=== PATIENT | female | born 1955 | race Caucasian/White ===

== ENCOUNTER 2016-11-11 06:11 | Inpatient (IN) | payer OTHER ==
[~2016-11-11] VITALS: Ht 162.6 cm; Wt 81.2 kg
[~2016-11-11 06:11] MED LIST: CARV3.122 PO; CEPH500T PO; DETLA4 PO; ENAL5TAB76 PO; GABA300C PO; GLIP5TAB4 PO; INSU100S22 SUBQ; LISI-424 PO; METF1000 PO; OMEP20TC10 PO; RANI300T35 PO; SIMV10TA6 PO; TRAM50TA3 PO
[2016-11-11] MEDS ORDERED: SEVOFLURANE 250 ML BTL INH ONE (07:25)
[2016-11-11] MEDS ORDERED: PROPOFOL 200 MG/20 ML VIAL IV ONE (07:25)
[2016-11-11] MEDS ORDERED: KETOROLAC 60 MG/2 ML VIAL IM ONE (07:25)
[2016-11-11] MEDS ORDERED: ONDANSETRON 4 MG/2 ML VIAL ONE (07:25)
[2016-11-11] MEDS ORDERED: DEXAMETHASONE 4 MG/ML VIAL ONE (07:25)
[2016-11-11] MEDS ORDERED: CLINDAMYCIN 900 MG/6 ML VIAL IV ONE (07:33)
[2016-11-11] MEDS ORDERED: MORPHINE SULFATE 4 MG/ML SYR IM/IVP PRN (07:35)
[2016-11-11] MEDS ORDERED: fentaNYL 0.05 MG/ML VIAL ONE (07:37)
[2016-11-11] MEDS ORDERED: MEPERIDINE 50 MG/ML SYR ONE (07:37)
[2016-11-11] MEDS ORDERED: MIDAZOLAM 2 MG/2 ML VIAL ONE (07:37)
[2016-11-11] MEDS ORDERED: LISI-424 PO (07:54)
[2016-11-11] MEDS ORDERED: GABA250S1 PO (07:54)
[2016-11-11] MEDS ORDERED: SIMV10TA6 PO (07:54)
[2016-11-11] MEDS ORDERED: OMEP20TC24 PO (07:54)
[2016-11-11] MEDS ORDERED: METF10002 PO (07:54)
[2016-11-11] MEDS ORDERED: MIDAZOLAM 2 MG/2 ML VIAL IVP ONE (09:05)
[2016-11-11] MEDS ORDERED: MEPERIDINE 25 MG/ML SYR IVP PRN (09:05)
[2016-11-11] MEDS ORDERED: METOCLOPRAMIDE 10 MG/2 ML INJ VIAL IVP PRN (09:05)
[2016-11-11] MEDS ORDERED: MEPERIDINE 25 MG/ML SYR ONE (09:29)
[2016-11-11] MEDS ORDERED: NACL 0.9% 500 ML IV SCH (09:35)
[2016-11-11 14:40] VITALS: BP 119/62
--- NOTE | 2016-11-11 14:45 | NUR ---
RECEIVED PT ON UNIT VIA GURNEY, PT IS A/OX4, BEDREST, PT HAS IV ON THE LT HAND, PATENT, INTACT, FLUSHING WELL, PT IS HAS HAHN CATHETER IN PLACE, PT IS S/P VAGINAL HYSTERECTOMY 11/11/16, WINTER PAD IS DRY AND INTACT, NO S/S OF RESPIRATORY DISTRESS OR DISCOMFORT NOTED, CALL LIGHT IS WITHIN REACH, WILL CONTINUE TO MONITOR, FAMILY IS AT BEDSIDE.
[2016-11-11 16:00] VITALS: BP 101/57
[2016-11-11] MEDS: MEPERIDINE 25 MG/ML SYR IVP PRN (16:09)
--- NOTE | 2016-11-11 16:45 | NUR ---
PT IS SLEEPING IN BED AT THIS TIME, FAMILY IS AT BEDSIDE, CALL LIGHT IS WITHIN REACH, WILL CONTINUE TO MONITOR.
--- NOTE | 2016-11-11 18:30 | NUR ---
PT IS RESTING IN BED, DROWSY BUT AWAKEN WHEN CALLED BY NAME, NO S/S OF RESPIRATORY DISTRESS OR DISCOMFORT NOTED, IS AT BEDSIDE, CALL LIGHT IS WITHIN REACH, WILL CONTINUE TO MONITOR.
--- NOTE | 2016-11-11 19:25 | NUR ---
ENDORSED PT TO KENAN VINES. FOR CONTINUITY OF CARE, PT STABLE AT THIS TIME, FAMILY IS AT BEDSIDE, CALL LIGHT WITHIN REACH.
--- NOTE | 2016-11-11 19:26 | NUR ---
RECEIVED REPORT FROM DAY RN FOR CONTINUITY OF CARE. PATIENT IS A&OX4, BERMUDIAN SPEAKING, DISCUSSED PLAN OF CARE WITH PATIENT AND FAMILY MEMBER AT BEDSIDE, VERBALIZED UNDERSTANDING. SHIFT ASSESSMENT DONE, VS TAKEN, STABLE AT THIS TIME. NO S/S OF RESPIRATORY DISTRESS NOTED ON ROOM AIR. PATIENT DENIES PAIN AT THIS TIME. S/P HYSTERECTOMY, WINTER PAD IN PLACE. IV TO LT HAND PATENT AND INFUSING FLUIDS WELL. SAFETY MEASURES ENFORCED. CALL LIGHT WITHIN REACH. WILL CONTINUE TO MONITOR.
[2016-11-11] MEDS: ONDANSETRON 4 MG/2 ML VIAL IVP PRN (19:53)
[2016-11-11 20:00] VITALS: BP 115/66
--- NOTE | 2016-11-11 20:30 | NUR ---
SPOKE TO DR. STACK, INFORMED MD PATIENT ONLY HAS PACU ORDER FOR DEMEROL FOR PAIN, PER MD OK TO CONTINUE WITH DEMEROL AND IVF ON EMAR. WILL CONTINUE WITH PLAN OF CARE.
--- NOTE | 2016-11-11 22:10 | NUR ---
PATIENT RESTING AT THIS TIME, DENIES PAIN. WILL CONTINUE TO MONITOR.
[2016-11-12] VITALS: BP 117/68
[2016-11-12] MEDS: MEPERIDINE 25 MG/ML SYR IVP PRN ×2 (00:22→08:05)
--- NOTE | 2016-11-12 00:25 | NUR ---
VITAL SIGNS STABLE, PT C/O PAIN, MEDICATED PER MD ORDER. CALL LIGHT WITHIN REACH.
--- NOTE | 2016-11-12 02:40 | NUR ---
PATIENT SLEEPING AT THIS TIME, NO S/S OF DISTRESS OR DISCOMFORT NOTED. WILL CONTINUE TO MONITOR.
--- NOTE | 2016-11-12 04:27 | NUR ---
PATIENT REPOSITIONED FOR COMFORT, RESTING AT THIS TIME, DENIES PAIN. SAFETY MEASURES ENFORCED, CALL LIGHT WITHIN REACH.
--- NOTE | 2016-11-12 06:15 | NUR ---
PATIENT RESTING IN BED, NO S/S OF DISTRESS OR DISCOMFORT AT THIS TIME.
[2016-11-12 06:50] LABS: BASOPHILS # (AUTO) 0.1 K/uL (0.00-0.22); EOSINOPHILS # (AUTO) 0.1 K/uL (0-0.4); EOSINOPHILS % (AUTO) 0.6 % (0.0-4.0); HEMOGLOBIN 9.5 g/dL (12.0-16.0); LYMPHOCYTES # (AUTO) 1.5 K/uL (2.5-16.5); LYMPHOCYTES % (AUTO) 11.6 % (20.5-51.1); MEAN CORPUSCULAR HEMOGLOBIN 30 pg (27-31); MEAN CORPUSCULAR HGB CONC 33 g/dL (33-37); MEAN CORPUSCULAR VOLUME 92 fL (80-94); MONOCYTES % (AUTO) 7.9 % (1.7-9.3); NEUTROPHILS # (AUTO) 9.9 K/uL (1.8-7.7); NEUTROPHILS % (AUTO) 78.9 % (42.2-75.2); PLATELET COUNT (AUTO) 258 K/uL (140-450); RED BLOOD CELL COUNT(AUTO) 3.14 MIL/uL (4.20-5.40); RED CELL DISTRIBUTION WIDTH 14.3 % (11.6-13.7); WHITE BLOOD COUNT (AUTO) 12.6 K/uL (4.8-10.8)
--- NOTE | 2016-11-12 06:52 | NUR ---
DR STACK CAME TO SEE PATIENT, PER HAHN CATH TO BE REMOVED NOW AND PATIENT TO AMBULATE TO CHAIR IN AM. HAHN CATH REMOVED, 100 ML YELLOW URINE, 10 ML NS RETURNED.
--- NOTE | 2016-11-12 07:27 | NUR ---
ENDORSED PATIENT TO DAY RN FOR CONTINUITY OF CARE, PATIENT IS IN STABLE CONDITION.
--- NOTE | 2016-11-12 07:40 | NUR ---
REPORT RECEIVED FROM MEASURING CLERK, PT SLEEPING QUIETLY, RESP EVEN UNLABORED ON ROOM AIR IN NAD, AROUSES EASILY BY VOICE, ABD SOFT, NON DISTENDED, NO VAGINAL BLEEDING NOTED, REPORTS ABD PAIN, WILL MEDICATE, PLAN OF CARE REVIEWED, CALL SMITH WITHIN REACH, SIDE RAILS UP, BED LOCKED IN LOW POSITION, WILL CONTINUE TO MONITOR.
[2016-11-12 08:00] VITALS: BP 111/59
[2016-11-12] MEDS: ONDANSETRON 4 MG/2 ML VIAL IVP PRN ×3 (08:05→19:41)
--- NOTE | 2016-11-12 08:50 | NUR ---
PATIENT HAS BEEN SCREENED AND CATEGORIZED MODERATE NUTRITION RISK. PATIENT WILL BE SEEN WITHIN 3-5 DAYS OF ADMISSION. 11/14/16-11/16/[address]
--- NOTE | 2016-11-12 10:00 | NUR ---
PT UP TO BATHROOM AMBULATES WELL WITH STEADY GAIT WITH MINIMAL ASSIST, PT REPORTS SLIGHT PAIN, BUT TOLERABLE, REPORTS SPONTANEOUS VOID WITHOUT PROBLEM. AT BEDSIDE, WILL CONTINUE TO MONITOR.
[2016-11-12] MEDS ORDERED: MIDAZOLAM 2 MG/2 ML VIAL IVP ONE (10:40)
[2016-11-12] MEDS: ACETAMINOPHEN/CODEINE 300/30MG 1 TAB PO PRN (11:06)
--- NOTE | 2016-11-12 12:50 | NUR ---
PT CONTINUES TO C/O SEVER PAIN, PT HOLDING ABD, APPEARS IN OBVIOUS PAIN, DR STACK CALLED, TELEPHONE ORDER FOR DILAUDID RECEIVED, ALSO, PT OK TO ADVANCE DIET TOLERATED PER DR STACK. WILL CONTINUE TO MONITOR
[2016-11-12 13:55] VITALS: BP 126/68
[2016-11-12] MEDS: HYDROmorphone 1 MG/ML AMP IVP PRN ×2 (13:57→19:42)
--- NOTE | 2016-11-12 14:20 | NUR ---
PT SLEEPING QUIETLY IN NAD, RESP EVEN UNLABORED, AT BEDSIDE, WILL CONTINUE TO MONITOR
[2016-11-12 16:00] VITALS: BP 124/72
--- NOTE | 2016-11-12 16:00 | NUR ---
EMESIS YELLOW LIQ X1 APPROX 100ML, ZOFRAN GIVEN PER PRN ORDER. PT STATES PAIN IS BETTER. WILL MONITOR FOR FURTHER VOMITING AND NAUSEA.
--- NOTE | 2016-11-12 16:30 | NUR ---
PT UP TO BEDSIDE COMMODE, VAGINAL SPOTTING MINIMAL, ABD SOFT, TENDER, PT REPORTS NAUSEA SUBSIDED, WILL CONTINUE TO MONITOR.
--- NOTE | 2016-11-12 16:55 | NUR ---
PT SLEEPING QUIETLY IN NAD, AT BEDSIDE REPORTS NO FURTHER VOMITING, IVF INFUSING WELL, SITE CLEAR, CALL BELLWITIN REACH, SIDE RAILS UP, WILL CONTINUE TO MONITOR.
--- NOTE | 2016-11-12 19:25 | NUR ---
REPORT GIVEN TO MANAGER CODING NURSE, PT IN STABLE CONDITION.
--- NOTE | 2016-11-12 19:30 | NUR ---
RECEIVED REPORT FROM DAY RN AT BEDSIDE, PATIENT IS AAOX4 ON ROOM AIR, NO SOB OR SIGN OF DISTRESS, PT C/O PAIN 11/14O WILL MEDICATE PER MD ORDER, SKIN INTACT, IV TO LEFT HAND PATENT AND INTACT, DISCUSSED PLAN OF CARE WITH PATIENT, PT VERBALIZED UNDERSTANDING, CALL LIGHT WITHIN REACH. WILL CONTINUE TO MONITOR
--- NOTE | 2016-11-12 19:51 | NUR ---
ASSISTED PT UP TO BEDSIDE COMMODE, VOIDED CLEAR YELLOW URINE, ASSISTED BACK TO BED, PT C/O SEVERE PAIN /10, AND NAUSEA, ADMINISTERED PAIN MEDICATION AND ZOFRAN PER MD ORDER, CALL LIGHT WITHIN REACH. WILL CONTINUE TO MONITOR
[2016-11-13] VITALS: BP 145/72
[2016-11-13] MEDS: ACETAMINOPHEN/CODEINE 300/30MG 1 TAB PO PRN ×4 (00:01→14:46)
--- NOTE | 2016-11-13 00:25 | NUR ---
PT MOANING C/O PAIN, ASKED FOR TYLENOL STATED SHE GETS NAUSEOUS WITH THE DILAUDED, OFFERED ZOFRAN PT STATED SHE ONLY WANTED TYLENOL. PT TOLERATED WELL, ASSISTED UP TO BEDSIDE COMMODE, PT VOIDED, ASSISTED BACK TO BED, CALL LIGHT WITHIN REACH. WILL CONTINUE TO MONITOR.
--- NOTE | 2016-11-13 02:39 | NUR ---
PT SLEEPING, NO SIGN OF DISTRESS, CALL LIGHT WITHIN REACH. WILL CONTINUE TO MONITOR.
--- NOTE | 2016-11-13 04:00 | NUR ---
PT SLEEPING, NO SIGN OF DISTRESS, WILL CONTINUE TO MONITOR.
--- NOTE | 2016-11-13 07:20 | NUR ---
REPORT RECEIVED FROM RESERVATIONS AGENT NURSE, PT SLEEPING QUIETLY, RESP EVEN UNLABORED ON RA IN NAD, PT AROUSES EASILY BY VOICE, PLAN OF CARE REVIEWED, DENIES ANY IMMEDIATE NEEDS, CALL SMITH WITHIN REACH, SIDE RAILS UP, BED LOCKED IN LOW POSITION, WILL CONTINUE TO MONITOR.
--- NOTE | 2016-11-13 07:27 | NUR ---
ENDORSED PATIENT TO DAY RN AT BEDSIDE, PATIENT IN STABLE CONDITION.
[2016-11-13 08:00] VITALS: BP 132/73
--- NOTE | 2016-11-13 08:13 | NUR ---
PT ASSISTED UP TO BEDSIDE COMMODE, PT REPORTS ABD PAIN WITH MOVEMENTS, PT RETURNED TO BED WITH MINIMAL ASSIST, DENIES NEED FOR PAIN MED AT THIS TIME, DENIES NAUSEA, SITTING UP NOW TO EAT BREAKFAST.
--- NOTE | 2016-11-13 11:20 | NUR ---
PT STATES ABD PAIN SUBSIDED, NOW C/O ONLY BEING "GASSY", DENIES N/V, PT ASSISTED UP TO BEDSIDE COMMODE, NO VAGINAL BLEEDING NOTED, FAMILY AT BEDSIDE, AWAITING MD ROMAN, CALL SMITH WITHIN REACH, WILL CONTINUE TO MONITOR.
--- NOTE | 2016-11-13 14:00 | NUR ---
PT RESTING QUIETLY IN NAD,R CATHERINE EVEN UNLABORED, SKIN WARM DRY COLOR WNL, APPEARS COMFORTABLE AT THIS TIME, AT BEDSIDE, AWAITING DR STACK FOR DISPO.
[2016-11-13 16:00] VITALS: BP 128/80
--- NOTE | 2016-11-13 16:20 | NUR ---
DC INSTRUCTION GIVEN AND EXPLAINED TO PT, PT GIVEN DR STACK'S NUMBER FOR F/U APPOINTMENT, PT AND VERBALIZED FULL UNDERSTANDING, PT UP OUT OF BED WITHOUT PROBLEM, IV DC'D, CATH TIP INTACT, BLEEDING CONTROLLED, DC HOME NOW WITH , ESCORTED OUT IN WHEEL CHAIR.
== END 2016-11-13 16:20 | disposition home or self-care (01) | DRG 513 ==
LOC: MDS 06:11 → MMU 06:11 → MDS 13:33 → MTU 13:33
PROVIDERS: ADMIT Obstetrics & Gynecology; ATTEND Obstetrics & Gynecology
PROC: 0JQC0ZZ Repair Pelvic Region Subcutaneous Tissue and Fascia, Open Approach (ICD-10-PCS; 2016-11-11)
PROC: 0TVD0ZZ Restriction of Urethra, Open Approach (ICD-10-PCS; 2016-11-11)
PROC: 0UT97ZZ Resection of Uterus, Via Natural or Artificial Opening (ICD-10-PCS; principal; 2016-11-11 08:00)
PROC: 0JQC0ZZ Repair Pelvic Region Subcutaneous Tissue and Fascia, Open Approach (ICD-10-PCS; 2016-11-11 08:00)
CPT/HCPCS: 36415; 82948; 85025; 87081; J1100; J1170; J1885; J2175; J2250; J2405; J2704; J3010; J3490; J7030

== ENCOUNTER 2022-07-31 13:46 | Emergency (ER) | payer OTHER ==
[~2022-07-31] VITALS: Ht 132.1 cm; Wt 73.5 kg
[~2022-07-31 13:46] MED LIST changes: +ENAL-270 PO; -ENAL5TAB76 PO; +GABA250S1 PO; +GLIP5TAB14 PO; -GLIP5TAB4 PO; -LISI-424 PO; +LISI5TAB24 PO; +METF-1253 PO; +METF-1274 PO; -METF1000 PO; +OMEP-278 PO; +OMEP-303 PO; -OMEP20TC10 PO; -SIMV10TA6 PO; +SIMV10TA92 PO
[2022-07-31 14:02] VITALS: BP 138/78
[2022-07-31 14:56] LABS: BILIRUBIN,URINE NEGATIVE (NEGATIVE); BLOOD, URINE 1+ (NEGATIVE); COLOR,URINE YELLOW (YELLOW); LEUKOCYTE ESTERASE ,URINE 3+ (NEGATIVE); NITRITE, URINE NEGATIVE (NEGATIVE); UGLUCOSE NEGATIVE (NEGATIVE)
--- NOTE | 2022-07-31 15:00 | NUR ---
67 Y/O FEMALE BIB C/O "A LITTLE VAGINAL BLEEDING" AROUND 3 DROPS OF BLOOD WITH SOME PAINFUL [id number]. PMH: DM ALLERGY: GLIPTIZIDE, PCN, CIPRO
[2022-07-31 15:01] LABS: APPEARANCE,URINE CLOUDY (CLEAR)
[2022-07-31 15:15] LABS: WBC,URINE 80-100 /HPF (0-5)
[2022-07-31] MEDS ORDERED: PHEN-1877 PO (15:50)
[2022-07-31] MEDS ORDERED: SULF-59 PO (15:50)
--- NOTE | 2022-07-31 16:00 | NUR ---
Patient discharged with v/s stable. Written and verbal after care instructions ABOUT UTI given and explained. Patient alert, oriented and verbalized understanding of instructions. Ambulatory with steady gait. All questions addressed prior to discharge. ID band removed. Patient advised to follow up with PMD. Rx of PYRIDIUM, BACTRIM DS given. Patient educated on indication of medication including possible reaction and side effects. Opportunity to ask questions provided and answered.
--- NOTE | 2022-08-03 14:11 | NUR ---
LATE ENTRY. RECEIVED POSITIVE URINE CULTURE. FORM GIVEN TO DR ST, TREATMENT APPROPRIATE. FORM PLACED IN BINDER.
== END 2022-07-31 16:00 | disposition home or self-care (01) ==
LOC: MED 13:46
DX: N39.0 Urinary tract infection, site not specified (principal); E11.9 Type 2 diabetes mellitus without complications; I10 Essential (primary) hypertension; Z88.5 Allergy status to narcotic agent; Z79.1 Long term (current) use of non-steroidal anti-inflammatories (NSAID); Z88.8 Allergy status to other drugs, medicaments and biological substances; Z79.899 Other long term (current) drug therapy; Z79.4 Long term (current) use of insulin; Z98.890 Other specified postprocedural states
CPT/HCPCS: 81001; 87086; 99283

== ENCOUNTER 2022-08-04 08:27 | Inpatient (IN) | payer OTHER ==
[~2022-08-04] VITALS: Ht 160 cm; Wt 74.8 kg
[~2022-08-04 08:27] MED LIST changes: +PHEN-1877 PO; +SULF-59 PO
--- NOTE | 2022-08-04 08:31 | NUR ---
PT BIBA TO ER BED 6
[2022-08-04 08:34] VITALS: BP 152/72
[2022-08-04] MEDS ORDERED: ONDANSETRON 4 MG/2 ML VIAL IVP ONE (08:50)
[2022-08-04 09:56] LABS: BASOPHILS # (AUTO) 0.1 K/uL (0.00-0.22); EOSINOPHILS # (AUTO) 0.1 K/uL (0-0.4); HEMATOCRIT 39.8 % (36-48); HEMOGLOBIN 13.3 g/dL (12.0-16.0); LYMPHOCYTES # (AUTO) 1.4 K/uL (2.5-16.5); LYMPHOCYTES % (AUTO) 24.3 % (20.5-51.1); MEAN CORPUSCULAR HEMOGLOBIN 31 pg (27-31); MEAN CORPUSCULAR HGB CONC 33 g/dL (33-37); MEAN CORPUSCULAR VOLUME 92.1 fL (80-94); MONOCYTES # (AUTO) 0.3 K/uL (0.8-1.0); MONOCYTES % (AUTO) 5.1 % (1.7-9.3); NEUTROPHILS # (AUTO) 3.8 K/uL (1.8-7.7); NEUTROPHILS % (AUTO) 68.6 % (42.2-75.2); PLATELET COUNT (AUTO) 281 K/uL (140-450); RED BLOOD CELL COUNT(AUTO) 4.32 MIL/uL (4.20-5.40); RED CELL DISTRIBUTION WIDTH 15.2 % (11.6-13.7); WHITE BLOOD COUNT (AUTO) 5.6 K/uL (4.8-10.8)
[2022-08-04] MEDS ORDERED: ONDANSETRON 4 MG/2 ML VIAL ONE (10:11)
[2022-08-04 10:23] LABS: APPEARANCE,URINE CLEAR (CLEAR); BILIRUBIN,URINE NEGATIVE (NEGATIVE); BLOOD, URINE NEGATIVE (NEGATIVE); COLOR,URINE YELLOW (YELLOW); LEUKOCYTE ESTERASE ,URINE NEGATIVE (NEGATIVE); NITRITE, URINE NEGATIVE (NEGATIVE); PH,URINE 7.5 (5.0-9.0); UGLUCOSE TRACE (NEGATIVE)
[2022-08-04 10:27] LABS: ALBUMIN 3.3 g/dL (3.4-5.0); ANION GAP 13.6 (8-16); ASPARTATE AMINOTRANSFERASE 15 U/L (15-37); CARBON DIOXIDE 24.6 mmol/L (21-32); CHLORIDE 100 mmol/L (98-107); CREATININE 0.9 mg/dL (0.6-1.3); GFR ARICAN-AMERICAN 80 mL/min (>90); GLUCOSE 202 mg/dL (74-106); POTASSIUM 3.2 mmol/L (3.5-5.1); SODIUM SERUM 135 mmol/L (136-145); TOTAL BILIRUBIN 0.3 mg/dL (0.0-1.0); UREA NITROGEN, BLOOD 20 mg/dL (7-18)
[2022-08-04] MEDS: NACL 0.9% 1,000 ML IV SCH ×3 (10:28→12:17)
[2022-08-04] MEDS ORDERED: BACTRIM IV PER PHARMACY MC PRN (10:40)
[2022-08-04] MEDS ORDERED: MEROPENEM 1,000 MG in NACL 0.9% 50 ML IV ONE (10:55)
[2022-08-04] MEDS ORDERED: MEROPENEM 1,000 MG VIAL IV ONE (11:23)
[2022-08-04] MEDS ORDERED: MAGNESIUM OXIDE 400 MG TAB PO ONE (11:45)
[2022-08-04] MEDS ORDERED: POTASSIUM CHLORIDE 10 MEQ TABER PO ONE ×2 (11:45→11:51)
[2022-08-04] MEDS ORDERED: MAGNESIUM OXIDE 400 MG TAB ONE (11:50)
[2022-08-04] MEDS ORDERED: POTASSIUM CHLORIDE 20% 40 MEQ/15 ML UDC PO ONE (12:05)
[2022-08-04] MEDS ORDERED: DEXTROSE 50% 50 ML SYR IVP PRN (12:20)
[2022-08-04] MEDS ORDERED: POTASSIUM CHLORIDE 10 MEQ TABER PO PRN (12:20)
[2022-08-04] MEDS ORDERED: ACETAMINOPHEN 325 MG TAB PO PRN (12:20)
[2022-08-04] MEDS ORDERED: DOCUSATE SODIUM 100 MG GELCAP PO PRN (12:20)
[2022-08-04] MEDS ORDERED: ZOLPIDEM 10 MG TAB PO PRN (12:20)
[2022-08-04] MEDS ORDERED: LORazepam 2 MG/ML VIAL IVP PRN (12:20)
[2022-08-04] MEDS ORDERED: MAG SULF 2000 MG/WATER PREMIX 50 ML IV PRN (12:20)
[2022-08-04] MEDS ORDERED: ONDANSETRON 4 MG/2 ML VIAL IVP PRN (12:20)
[2022-08-04] MEDS: GABAPENTIN 300 MG CAP PO SCH ×2 (13:00→17:26)
[2022-08-04 13:40] VITALS: BP 132/75
--- NOTE | 2022-08-04 13:40 | NUR ---
PT WAS BROUGHT IN FROM ED IN WHEELCHAIR, ON ROOM AIR, NO ACUTE S/S OF DISTRESS. AMBULATES WITH ASSIST TO THE BED. FULL REPORT GIVEN BY KRISTINA GRAYSON. IV TO LEFT AC 20G. PATENT AND INTACT. FULL ASSESSMENT COMPLETED. CONNECTED TO [employer]. EDUCATION PROVIDED REGARDING HOSPITAL SETTING. PT ABLE TO MAKE NEEDS KNOWN. ALL SAFETY MEASURES IN PLACE, CALL LIGHT WITHIN REACH.
--- NOTE | 2022-08-04 14:04 | NUR ---
RESTING IN BED, USES BEDPAN PER REQUEST FREQUENTLY. PUREWICK IN PLACE, OK WITH PT. NO NAUSEA OR VOMITING WHILE IN THE ED. TOLERATED PO MEDS
--- NOTE | 2022-08-04 14:05 | NUR ---
Patient will be admitted to care of DR HERRERA. Admited to MED SURGMed/Surg. Will go to room 120B. Belongings list completed. Report to ASHLEE GRAYSON.
[2022-08-04 16:00] VITALS: BP 132/81
--- NOTE | 2022-08-04 16:24 | NUR ---
PT REPORT ACID REFLUX, MD MADE AWARE. TORB RECEIVED AND PLACED. WILL MEDICATE PER MD ORDER. NO ACUTE S/S OF DISTRESS, ALL SAFETY MEASURES IN PLACE, CALL LIGHT WITHIN REACH.
[2022-08-04] MEDS: BLOOD GLUCOSE MONITORING 1 DEV DEV FS SCH ×2 (17:26→20:16)
[2022-08-04] MEDS ORDERED: PANTOPRAZOLE 40 MG TABEC PO SCH (17:26)
--- NOTE | 2022-08-04 17:29 | NUR ---
PATIENT HAS BEEN SCREENED AND CATEGORIZED MODERATE NUTRITION RISK. PATIENT WILL BE SEEN WITHIN 3-5 DAYS OF ADMISSION. / REVIEWED BY TIAN WISEMAN RD
--- NOTE | 2022-08-04 18:58 | NUR ---
PT. RESTING COMFORTABLY, NO CURRENT DISTRESS, ALL NEEDS MET. NO CURRENT DISTRESS.
--- NOTE | 2022-08-04 19:05 | NUR ---
PT. RESTING COMFORTABLY, ALL NEEDS MET, NO CURRENT DISTRESS
--- NOTE | 2022-08-04 19:06 | NUR ---
RECEIVED PT FROM MORNING SHIFT NURSE. PT IS AOX4, CROATIAN SPEAKING, ABLE TO VERBALIZE NEEDS AND ABLE TO FOLLOW COMMANDS. PT IS AMBULATORY AND HAS PUREWICK. PT IS ON ROOM AIR AND ON CCHO DIET. PT HAS IV ON LEFT AC GAUGE 20, SALINE LOCK. PT SKIN IS INTACT. NO COMPLAIN OF PAIN AT THIS TIME. NO S/S OF RESPIRATORY DISTRESS NOTED. ALL SAFETY MEASURES IMPLEMENTED. BED IN LOW POSITION, BED WHEELS ON LOCK AND CALL LIGHT WITHIN REACH.
[2022-08-04 20:00] VITALS: BP 123/71
[2022-08-04] MEDS: carvediloL 3.125 MG TAB PO SCH (20:10)
--- NOTE | 2022-08-04 20:10 | NUR ---
SCHEDULED AND PRESCRIBED MEDICATION WAS GIVEN TO PT PER MD ORDER. ALL SAFETY MEASURES IMPLEMENTED. BED IN LOW POSITION, BED WHEELS ON LOCK AND CALL LIGHT WITHIN REACH.
--- NOTE | 2022-08-04 20:16 | NUR ---
PT BLOOD GLUCOSE IS 221. HUMALOG INSULIN 4 UNITS WAS GIVEN TO PT.
[2022-08-04] MEDS: INSULIN LISPRO SLIDING SCALE 100 UNITS/ML VIAL SUBQ PRN (20:17)
--- NOTE | 2022-08-05 | NUR ---
PT IS ON SLEEP. CHEST RISE AND FALL SYMMETRICALLY NOTED. RESPIRATION IS EVEN AND UNLABORED. NO S/S OF RESPIRATORY DISTRESS NOTED. ALL SAFETY MEASURES IMPLEMENTED. BED IN LOW POSITION, BED WHEELS ON LOCK AND CALL LIGHT WITHIN REACH.
--- NOTE | 2022-08-05 02:00 | NUR ---
CHECKED THE PT, STILL ON SLEEP. CHEST RISE AND FALL SYMMETRICALLY NOTED. RESPIRATION IS EVEN AND UNLABORED. NO S/S OF RESPIRATORY DISTRESS NOTED. ALL SAFETY MEASURES IMPLEMENTED. BED IN LOW POSITION, BED WHEELS ON LOCK AND CALL LIGHT WITHIN REACH.
--- NOTE | 2022-08-05 04:00 | NUR ---
EMPTY PT'S PUREWICK CANISTER AMOUNTED 500ML. PT DENIES PAIN AT THIS TIME. NO S/S OF RESPIRATORY DISTRESS NOTED. ALL SAFETY MEASURES IMPLEMENTED. BED IN LOW POSITION, BED WHEELS ON LOCK AND CALL LIGHT WITHIN REACH.
[2022-08-05] MEDS: BLOOD GLUCOSE MONITORING 1 DEV DEV FS SCH ×3 (06:30→16:54)
[2022-08-05] MEDS: INSULIN LISPRO SLIDING SCALE 100 UNITS/ML VIAL SUBQ PRN ×3 (06:31→16:55)
--- NOTE | 2022-08-05 06:31 | NUR ---
PT BLOOD SUGAR IS 151. HUMALOG INSULIN 2 UNITS WAS GIVEN TO PT.
[2022-08-05 07:04] LABS: ANION GAP 11.8 (8-16); CARBON DIOXIDE 25.7 mmol/L (21-32); CREATININE 0.8 mg/dL (0.6-1.3); POTASSIUM 3.5 mmol/L (3.5-5.1)
[2022-08-05 07:06] LABS: BASOPHILS % (AUTO) 0.7 % (0.0-2.0); EOSINOPHILS # (AUTO) 0.2 K/uL (0-0.4); EOSINOPHILS % (AUTO) 2.8 % (0.0-4.0); HEMATOCRIT 40.6 % (36-48); HEMOGLOBIN 13.6 g/dL (12.0-16.0); LYMPHOCYTES # (AUTO) 2.1 K/uL (2.5-16.5); LYMPHOCYTES % (AUTO) 34.3 % (20.5-51.1); MEAN CORPUSCULAR HEMOGLOBIN 31 pg (27-31); MEAN CORPUSCULAR HGB CONC 33 g/dL (33-37); MONOCYTES # (AUTO) 0.4 K/uL (0.8-1.0); NEUTROPHILS # (AUTO) 3.4 K/uL (1.8-7.7); NEUTROPHILS % (AUTO) 55.2 % (42.2-75.2); PLATELET COUNT (AUTO) 278 K/uL (140-450); RED BLOOD CELL COUNT(AUTO) 4.36 MIL/uL (4.20-5.40); RED CELL DISTRIBUTION WIDTH 15.4 % (11.6-13.7); WHITE BLOOD COUNT (AUTO) 6.1 K/uL (4.8-10.8)
--- NOTE | 2022-08-05 07:15 | NUR ---
RECEIVED REPORT FROM BUS REPAIR SUPERVISOR FOR CONTINUITY OF CARE. INITIAL ASSESSMENT DONE. IV ON SL. IV SITE INTACT. NOT IN ANY DISTRESS NOTED. CALL LIGHT KEPT WITHIN REACH. WILL CONTINUE TO MONITOR.
--- NOTE | 2022-08-05 07:18 | NUR ---
PT IS STABLE. ENDORSED PT TO MORNING SHIFT NURSE FOR CONTINUITY OF CARE.
[2022-08-05 08:00] VITALS: BP 145/79
[2022-08-05] MEDS: carvediloL 3.125 MG TAB PO SCH (08:48)
--- NOTE | 2022-08-05 08:48 | NUR ---
SCHEDULED PO MEDICATIONS GIVEN. TOLERATING WELL.
[2022-08-05] MEDS: GABAPENTIN 300 MG CAP PO SCH ×2 (08:53→13:00)
[2022-08-05] MEDS ORDERED: PANTOPRAZOLE 40 MG TABEC PO SCH (09:00)
[2022-08-05] MEDS ORDERED: cefTRIAXone 1,000 MG in LIDOCAINE MPF 1% 2.1 ML IM SCH (09:00)
[2022-08-05] MEDS ORDERED: ENALAPRIL 5 MG TAB PO SCH (09:00)
--- NOTE | 2022-08-05 11:37 | NUR ---
BS CHECKED 207. INSULIN WAS GIVEN PER SLIDING SCALE. TOLERATING WELL.
[2022-08-05] MEDS ORDERED: CEPH500T PO (12:03)
--- NOTE | 2022-08-05 14:20 | NUR ---
SCHEDULED MEDICATION JANUVIA GIVEN. TOLERATING WELL.
--- NOTE | 2022-08-05 14:58 | NUR ---
DC PLANNING ASSESSMENT COMPLETE PLEASE REFER TO ASSESSMENT FOR ADDITIONAL DETAILS MET WITH PT AT BEDSIDE TO COMPLETE ASSESSMENT. 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 PT REPORTS BEING INDEPENDENT IN ALL ACTIVITIES AND DENIES USE OF DME AT BASELINE. HOWEVER, PT REPORTS RECENT 'BOUTS OF DIZZINESS AND REPORTS STRUGGLING WITH EVEN GOING TO THE BATHROOM PT RESIDES IN A SINGLE STORY HOME WITH HER AND DAUGHTER, AT THE ADDRESS LISTED ON FILE. PT CURRENTLY HAS PT EVAL PENDING- POSSIBLE HH PENDING PT RECOM. PT REPORTS DC PLAN IS TO RETURN HOME WITH FAMILY PROVIDING TRANSPORTATION, ONCE MEDICALLY STABLE. Addendum: 08/05/22 at 1459 by Kash Wood SS Amended: Links added.
--- NOTE | 2022-08-05 15:21 | NUR ---
IV ABT WAS GIVEN BY NICO GRAYSON. TOLERATING WELL.
[2022-08-05 15:40] VITALS: BP 125/71
[2022-08-05 15:42] VITALS: BP 131/75
[2022-08-05 15:44] VITALS: BP 102/57
--- NOTE | 2022-08-05 15:45 | NUR ---
ORTHOSTATIC BLOOD PRESSURE TAKEN. LYING - BP 125/71 P- 66 N, SITTING - 131/75 P 69, STANDING 102/57 P 70. PT C/O DIZZINESS WHEN SITTING AND STANDING.
--- NOTE | 2022-08-05 16:54 | NUR ---
BS CHECKED 173. INSULIN WAS GIVEN PER SLIDING SCALE. TOLERATING WELL.
--- NOTE | 2022-08-05 18:40 | NUR ---
PT LEFT. DISCHARGE TO HOME. TRANSPORTED BY PRIVATE CAR PER WHEELCHAIR. ACCOMPANIED BY HER . ALERT AND ORIENTED X 4. IV AND ID BAND REMOVED. DISCHARGED PAPERWORK DISCUSS AND SIGNED BY PT. PERSONAL BELONGINGS TAKEN. REMAINS STABLE.
== END 2022-08-05 18:54 | disposition home or self-care (01) | DRG 149 ==
LOC: MED 08:27 → MTU 12:14
PROVIDERS: ADMIT Hospitalist; ATTEND Hospitalist
DX: H81.10 Benign paroxysmal vertigo, unspecified ear (principal); N12 Tubulo-interstitial nephritis, not specified as acute or chronic; E87.1 Hypo-osmolality and hyponatremia; E87.20 Acidosis, unspecified; E87.6 Hypokalemia; E83.42 Hypomagnesemia; Z20.822 Contact with and (suspected) exposure to COVID-19; I10 Essential (primary) hypertension; B96.4 Proteus (mirabilis) (morganii) as the cause of diseases classified elsewhere; E11.65 Type 2 diabetes mellitus with hyperglycemia; E88.09 Other disorders of plasma-protein metabolism, not elsewhere classified; Z79.899 Other long term (current) drug therapy; Z88.0 Allergy status to penicillin; Z88.5 Allergy status to narcotic agent; Z88.8 Allergy status to other drugs, medicaments and biological substances; Z90.710 Acquired absence of both cervix and uterus
CPT/HCPCS: 36415; 70450; 71045; 80048; 80053; 81003; 82948; 83605; 83735; 84484; 85025; 87040; 87081; 93005; 96361; 96365; 96375; 97163-GP; 97530; 99285; J0696; J1815; J2185; J2405; J7060

== ENCOUNTER 2023-07-01 21:23 | Emergency (ER) | payer OTHER ==
[~2023-07-01] VITALS: Ht 157.5 cm; Wt 63.5 kg
[~2023-07-01 21:23] MED LIST changes: -GABA250S1 PO; +GABA250S6 PO; -GLIP5TAB14 PO; -INSU100S22 SUBQ; -SULF-59 PO
[2023-07-01 21:28] VITALS: BP 141/80; PULSE 80; RESP 16; TEMP 97.4; O2SAT 99
[2023-07-01 22:09] LABS: APPEARANCE,URINE SL CLOUDY (CLEAR); BILIRUBIN,URINE NEGATIVE (NEGATIVE); BLOOD, URINE NEGATIVE (NEGATIVE); COLOR,URINE YELLOW (YELLOW); LEUKOCYTE ESTERASE ,URINE 1+ (NEGATIVE); NITRITE, URINE NEGATIVE (NEGATIVE); PH,URINE 6.5 (5.0-9.0); PROTEIN,URINE NEGATIVE (NEGATIVE); UGLUCOSE 2+ (NEGATIVE); UROBILINOGEN,URINE 0.2 EU/dL (0.2 - 1)
[2023-07-01 22:12] LABS: BACTERIA,URINE 1+ /HPF (None Seen); MUCUS,URINE None Seen /LPF (None Seen); RBC,URINE 0 /HPF (0-5); SQUAMOUS EPITHELIAL CELL,UR 0-3 (FEW) /LPF (0-3 (FEW))
[2023-07-01 22:26] VITALS: BP 142/71; PULSE 91; RESP 14; O2SAT 94
[2023-07-01 22:28] LABS: BASOPHILS # (AUTO) 0.1 K/uL (0.00-0.22); BASOPHILS % (AUTO) 0.9 % (0.0-2.0); EOSINOPHILS # (AUTO) 0.1 K/uL (0-0.4); EOSINOPHILS % (AUTO) 1.1 % (0.0-4.0); HEMOGLOBIN 12.9 g/dL (12.0-16.0); LYMPHOCYTES # (AUTO) 1.8 K/uL (2.5-16.5); LYMPHOCYTES % (AUTO) 26.6 % (20.5-51.1); MEAN CORPUSCULAR HEMOGLOBIN 31 pg (27-31); MEAN CORPUSCULAR HGB CONC 34 g/dL (33-37); MEAN CORPUSCULAR VOLUME 90.7 fL (80-94); MONOCYTES # (AUTO) 0.4 K/uL (0.8-1.0); MONOCYTES % (AUTO) 6.5 % (1.7-9.3); NEUTROPHILS # (AUTO) 4.3 K/uL (1.8-7.7); NEUTROPHILS % (AUTO) 64.9 % (42.2-75.2); PLATELET COUNT (AUTO) 366 K/uL (140-450); RED BLOOD CELL COUNT(AUTO) 4.19 MIL/uL (4.20-5.40); RED CELL DISTRIBUTION WIDTH 14.4 % (11.6-13.7); WHITE BLOOD COUNT (AUTO) 6.7 K/uL (4.8-10.8)
[2023-07-01 22:37] LABS: ANION GAP 16.5 (8-16); CALCIUM 9.4 mg/dL (8.5-10.1); CREATININE 0.8 mg/dL (0.6-1.3); POTASSIUM 3.5 mmol/L (3.5-5.1)
[2023-07-01 22:44] LABS: ALBUMIN 2.9 g/dL (3.4-5.0); BILIRUBIN,DIRECT 0.1 mg/dL (0.0-0.3); TOTAL BILIRUBIN 0.2 mg/dL (0.0-1.0); TOTAL PROTEIN, SERUM 8.3 g/dL (6.4-8.2)
[2023-07-01 22:48] LABS: LACTIC ACID 2.1 mmol/L (0.4-2.0)
[2023-07-02] MEDS ORDERED: cefTRIAXone 1,000 MG VIAL ONE (00:20)
[2023-07-02] MEDS: NACL 0.9% 1,000 ML IV ONE (00:29)
[2023-07-02] MEDS ORDERED: GABA300C PO (02:05)
[2023-07-02] MEDS ORDERED: NITR100C7 PO (02:19)
== END 2023-07-02 02:10 | disposition home or self-care (01) ==
LOC: MED 21:23
DX: E11.42 Type 2 diabetes mellitus with diabetic polyneuropathy (principal); N39.0 Urinary tract infection, site not specified; E86.0 Dehydration; I10 Essential (primary) hypertension; E78.5 Hyperlipidemia, unspecified; Z79.899 Other long term (current) drug therapy; Z88.0 Allergy status to penicillin; Z88.1 Allergy status to other antibiotic agents; Z88.6 Allergy status to analgesic agent; Z88.5 Allergy status to narcotic agent
CPT/HCPCS: 36415; 71045; 80048; 80076; 81001; 83605; 85025; 87040; 87086; 93005; 96365; 99285; J0696; J7030; Q0092